=== PATIENT | female | born 1985 | race Caucasian/White ===

== ENCOUNTER 2024-08-01 06:30 | Emergency (ER) | payer MEDICAID ==
[~2024-08-01] VITALS: Ht 160 cm; Wt 135.8 kg
[~2024-08-01 06:30] MED LIST: ONDA-243 PO
[2024-08-01 06:31] VITALS: TEMP 98.5
--- NOTE | 2024-08-01 07:02 | RADIOLOGY REPORT ---
EXAM: XR Left Ankle Complete, 3 or More Views CLINICAL INDICATION: LEFT ANKLE PAIN AFTER TWISTING ANKLE TECHNIQUE: Frontal, lateral and oblique views of the left ankle. COMPARISON: None FINDINGS: BONES/JOINTS: Lucency of the base of the 5th metatarsal could be a nondisplaced fracture. No dislo cation. SOFT TISSUES: Soft tissue swelling. OTHER FINDINGS: . IMPRESSION: Lucency of the base of the 5th metatarsal could be a nondisplaced fracture.
--- NOTE | 2024-08-01 07:21 | Physician Documentation ---
History of Present Illness ~ Chief Complaint: Ankle pain Stated Complaint: ANKLE PAIN Time Seen by MD: 06:43 Primary Medical Doctor: [facility] HPI Patient is here with persistent right foot and ankle pain. She stepped off a curb two weeks ago and twisted her foot. She has been using braces and trying to keep it elevated that has she has had persistent pain. Tetanus witin 5 years: Yes Medication Reconciliation Allergies: Coded Allergies: Penicillins (Verified Allergy, Severe, RASH, 08/01/24) Sulfa (Sulfonamide Antibiotics) (Verified Allergy, Severe, RASH, 08/01/24) amoxicillin (Verified Allergy, Severe, RASH, 08/01/24) Scheduled PRN ONDANSETRON ODT 4mg tablet (Ondansetron Odt), 1 TABLET PO Q6H PRN for nausea/vomiting Past Medical History Past Medical History: UTI Past Surgical History: noncontributory Last Menstrual Period: July 26, 2024 Alcohol Use: None Drug Use: none Lives In: Home Physical Exam Vital Signs: Temperature: 98.5, Source: Oral, Heart Rate: 83, Respiratory Rate: 17, BP: 182/93, Pulse Oximetry: 98, Weight: 135.850 Physical Exam General: Awake and Alert, no acute distress. HEENT: Conjunctiva pink, Sclera clear, Neck: Supple Resp: Unlabored. Heart: Good perfusion Abdomen: Nondistended Extremities: No cyanosis,clubbing or edema. Pain on palpation to the anterior lateral right ankle and little bit of pain at the base of the 5th metatarsal. Skin is intact she is neurovascularly intact. Here so pain over the proximal fibula. Skin: Warm and Dry. Neuro: no focal deficits Progress Results/Orders Results/Orders Orders - NIYA GRANADO MD Ankle, Complete(3vw Min) (08/01/24 06:35) Hydrocodone/Apap 5/325mg Tab ([place]ely 5/32 (08/01/24 07:15) Ortho Orders (08/01/24 ) Ortho Orders (08/01/24 ) Completed Orders - NIYA GRANADO MD Ankle, Complete(3vw Min) (08/01/24 06:35) Vital Signs 08/01/24 06:31 Temp 98.5 Pulse 83 Resp 17 B/P (MAP) 182/93 Pulse Ox 98 Medical Decision Making Findings Patient is here because she injured her foot and ankle two weeks ago was but she has some pain. X-rays concerning for a fracture of the base of the 5th metatarsal. She was placed in a short-leg splint crutches nonweightbearing and orthopedic follow up was given Neely for pain. Departure Disposition: HOME / SELF CARE / HOMELESS Impression: Primary Impression: Foot fracture, left Qualified Codes: S92.902A - Unspecified fracture of left foot, initial encounter for closed fracture Condition: Stable Additional Instructions: Do not put weight on your left leg. Follow up with Orthopedics. Referrals: NO PRIMARY CARE PROVIDER (PCP) Education Educated: Patient Educated regarding: diagnosis, treatment, prognosis Signature Scribe Signature: no scribe Attestation: no scribe NIYA GRANADO MD Aug 01, 2024 07:21
[2024-08-01] MEDS: HYDROcodone/acetaminophen 5mg/325mg tablet PO ONE (07:51)
[2024-08-01 08:20] VITALS: BP 156/91; PULSE 89; RESP 16; O2SAT 97
== END 2024-08-01 08:24 | disposition home or self-care (01) ==
LOC: ER 06:30
DX: S92.351A Displaced fracture of fifth metatarsal bone, right foot, initial encounter for closed fracture (principal); Z88.0 Allergy status to penicillin; Z88.2 Allergy status to sulfonamides; Z88.1 Allergy status to other antibiotic agents; X50.1XXA Overexertion from prolonged static or awkward postures, initial encounter; Y93.89 Activity, other specified; Y92.89 Other specified places as the place of occurrence of the external cause; Y99.8 Other external cause status
CPT/HCPCS: 29515; 73610; 99284; L4360; 29125; A6449